=== PATIENT | female | born 1985 | race Caucasian/White ===

== ENCOUNTER 2020-12-16 22:54 | Observation (INO) ==
[2020-12-17 00:54] LABS: POC Creatinine 0.8 mg/dL (0.6-1.2)
[2020-12-17 00:54] LABS: POC INR 1.1 (0.8-1.2)
--- NOTE | 2020-12-17 01:00 | Emergency Department Note ---
HPI General Chief complaint: Neuro Symptoms/Deficit Stated complaint: hurts to breath Time Seen by Provider: 12/16/20 22:56 Source: patient Mode of arrival: ambulatory Limitations: no limitations History of Present Illness HPI Narrative: Narrative: 35-year-old female presents to the emergency department because of new onset numbness. She states that she felt some numbness on the right side of her face in the afternoon on day of presentation. By 2099 she felt numbness on the right lower extremity in the right upper extremity. She had no weakness associated with this. She had some lightheadedness and some nausea. She also felt like her breathing was a little different than normal and she felt almost like she was drowning. This resolved. She rated her discomfort as a 7 on a 0-to-10 scale and states that it was still ongoing upon arrival. She states no prior similar episodes like this. Nothing makes it better or worse. Related Data Home Medications Medication Instructions Recorded Confirmed topiramate 100 mg tablet 100 mg PO QHS 11/23/20 12/07/20 Previous Rx's Medication Instructions Recorded albuterol sulfate 90 mcg/actuation 2 puff INHALATION Q4H PRN #6.7 g 08/02/20 aerosol inhaler estradiol 0.1 mg/24 hr semiweekly 1 patch TOPICAL .COMPLEX #8 each 08/02/20 transdermal patch ondansetron HCl 4 mg tablet 4 mg PO Q6H PRN #30 tab 08/02/20 sumatriptan succinate 50 mg tablet 50 mg PO PRN PRN #14 tab 08/02/20 metformin 500 mg tablet 500 mg PO BID #60 tab 10/27/20 clonazepam 1 mg tablet See Rx Instructions PO BID #45 tab 11/23/20 lamotrigine 200 mg tablet See Rx Instructions .ROUTE 11/23/20 .COMPLEX #30 tab lamotrigine 25 mg tablet 50 mg PO QDAY #60 tab 11/30/20 tizanidine 4 mg tablet 4 mg PO HS #30 tab 12/13/20 Allergies Allergy/AdvReac Type Severity Reaction Status Date / Time cephalexin [From Keflex] Allergy Severe Anaphylaxis Verified 12/16/20 23:00 Nortriptyline Allergy Severe Constipation, Verified 12/16/20 23:00 Tachycardia bee venom protein (honey bee) Allergy Intermediate Rash Verified 12/16/20 23:00 Doxepin Allergy Unknown Mental Verified 12/16/20 23:00 Breakdown gabapentin [From Neurontin] Allergy Unknown unknown Verified 12/16/20 23:00 propranolol Allergy Unknown unknown Verified 12/16/20 23:00 Review of Systems ROS ROS Narrative: Narrative: Constitutional: Denies fever and chills Eyes: Denies eye pain ENT ED: Denies throat pain, congestion and rhinorrhea Cardiovascular: Denies chest pain Respiratory: Denies shortness of breath Gastrointestinal: Reports nausea; Denies diarrhea Genitourinary: Denies dysuria Musculoskeletal: Denies back pain Integumentary: Denies rash Neurological: Reports numbness (Right upper extremity and right lower extremity right side of face.); Denies headache Psychiatric: Reports anxiety and depression Hematological/Lymphatic: Denies easy bleeding PFSH Narrative Patient History Narrative: Narrative: Medical/Surgical/Family History All Active Problems (Updated 12/17/20 @ 07:58 by Dane Bunch MD) Acute costochondritis (Acute) Headache (Acute) Cerebrovascular accident (Acute) Anxiety and depression (Chronic) Left knee sprain (Acute) Left ankle sprain (Acute) Right wrist sprain (Acute) Metabolic syndrome (Chronic) Fatigue (Chronic) Morbid obesity (Chronic) PTSD (post-traumatic stress disorder) (Chronic) Major depressive disorder, recurrent (Acute) Chronic ear infection (Chronic) Bilateral carpal tunnel syndrome (Chronic) Primary fibromyalgia syndrome (Chronic) Chronic low back pain (Chronic) Osteoarthritis (Chronic) Symptomatic dermographism (Chronic) Irritable bowel syndrome (Chronic) Peptic ulcer (Chronic) Migraine (Chronic) Obstructive sleep apnea (Chronic) Insomnia (Acute) Anxiety disorder (Acute) Vitamin D deficiency (Chronic) Migraine (Chronic) Costalchondritis (Chronic) Pleurisy (Chronic) Ovarian cyst (Chronic) Seasonal allergic rhinitis (Chronic) GERD (gastroesophageal reflux disease) (Chronic) Medical History (Updated 12/17/20 @ 07:58 by Dane Bunch MD) Abdominal pain Acute bronchitis Allergic reaction Anxiety and depression Anxiety disorder Anxiety hysteria Backache Bilateral carpal tunnel syndrome Chronic ear infection Chronic low back pain Complicated UTI (urinary tract infection) Contusion Diarrhea Disturbance of consciousness Dysphagia Dyspnea on exertion Elbow contusion Encounter for wound re-check Epigastric abdominal pain Exposure to genital herpes Fatigue Gastritis GERD (gastroesophageal reflux disease) History of recurrent UTI (urinary tract infection) Insomnia Irritable bowel syndrome Low back strain Metabolic syndrome Migraine Morbid obesity Nasal fracture Numbness of hand Obstructive sleep apnea Osteoarthritis Peptic ulcer Primary fibromyalgia syndrome Seasonal allergic rhinitis Sinusitis Sleep apnea Symptomatic dermographism Urinary tract infection Vaginal pain Viral syndrome Vitamin D deficiency Surgical History History of esophagogastroduodenoscopy (EGD) S/P appendectomy S/P cholecystectomy Family History Mother Anxiety Depressive disorder Malignant tumor of ovary Grandmother Anxiety Maternal Depressive disorder Maternal Pick's disease Maternal HTN (hypertension) Paternal Glaucoma Paternal Father Substance abuse Malignant tumor of testis Grandfather Heart disease, congenital Paternal Family/Other Malignant tumor of ovary Aunt Daughter Anxiety ADHD (attention deficit hyperactivity disorder) Social History Smoking Status: Former smoker Alcohol Intake Frequency: holiday/special occasion only Substance Use: does not use Exam Narrative Narrative: Narrative: General Limitations: no limitations General appearance: Present alert and in no apparent distress Head Head: Present atraumatic and normocephalic Eye Eye: Present PERRL and EOMI; Absent scleral icterus ENT ENT: Present normal oropharynx and mucous membranes moist Neck Neck: Present normal inspection and trachea midline Chest Chest: Present normal inspection Respiratory Respiratory: Present normal lung sounds bilaterally Cardiovascular Cardiovascular: Present regular rate and normal rhythm Adbominal Abdominal: Present soft and other (Obese); Absent tenderness Rectal Rectal: Present deferred Extremities Extremities: Present normal inspection and full ROM; Absent pedal edema Back Back: Present normal inspection; Absent tenderness Neurological Neurological: Present alert, oriented X3 and other (Decreased sensation right upper extremity right lower extremity right side of the face.) Psychiatric Psychiatric: Present normal affect and normal mood Skin Skin: Present warm (WNL) and dry Course Consultations Consultation #1: Neurologist who was consulted discussed the CT head that was negative with me. She stated the patient was out of the window for thrombolytics. She stated the patient was still in the window for thrombectomy and requested that I order a CT angiogram of the head and of the neck for [facility]. She advised that the patient would need admission to the hospital regardless of whether those tests were positive or negative. If they were positive the patient would need transport for thrombectomy. Consultation #2: Neurologist reports she looked at CTA head and neck and does not see any acute pathology. Patient is not a candidate for thrombectomy. Neurologist recommends patient be admitted to the hospital for an MR I of the brain tomorrow morning. Time: 01:48 Vital Signs Vital signs: Vital Signs Temperature 97.5 F 12/16/20 22:56 Pulse Rate 81 12/16/20 22:56 Respiratory Rate 16 12/16/20 22:56 Blood Pressure 130/80 12/16/20 22:56 Pulse Oximetry (%) 100 12/16/20 22:56 Temperature 97.5 F 12/17/20 00:41 Pulse Rate 86 12/17/20 03:31 Respiratory Rate 16 12/17/20 00:41 Blood Pressure 119/80 12/17/20 03:31 Pulse Oximetry (%) 98 12/17/20 03:31 MDM MDM Narrative Medical decision making narrative: Narrative: 35-year-old female who presents emerged department complaining of new onset numbness right lower extremity right upper extremity right side of the face. She denies any weakness with this. Differential diagnosis includes TIA, acute CVA, intracranial injury or bleed, neuropathy, spinal cord injury. Code stroke was recognized and instigated. CT of the head came back showing no acute pathology. The patient was in the 4.5-hour window at this point. Blood work was obtained. Neurologist reviewed the case and felt that she was not a candidate for thrombolytics. Neurologist requested we do a CTA of the head and neck. These were performed and both were read as negative by the radiologist as well as the neurologist. The neurologist recommended the patient be admitted to the hospital overnight and have a MRI of the brain performed in the morning. Morning MRI has been ordered. Case has been discussed with the hospitalist. He accepts the patient for admission. I ordered aspirin 324 mg p.o. Lab Data Result diagrams: 12/17/20 00:26 12/17/20 00:25 Labs: Lab Results 12/17/20 12/17/20 12/17/20 Range/Units 00:25 00:25 00:26 WBC 8.6 (4.5-11.0) K/mcL RBC 4.34 (4.00-5.20) M/mcL Hgb 12.4 (12.0-15.0) g/dL Hct 38.6 (36.0-48.0) % MCV 88.9 (80.0-100.0) fL MCH 28.6 (26.0-34.0) pg MCHC 32.1 (31.0-36.0) g/dL RDW 13.2 (11.5-14.5) % Plt Count 330 (140-440) K/mcL MPV 9.2 (7.4-10.4) fL Neut % (Auto) 61.3 (38.0-78.0) % Lymph % (Auto) 31.8 (15.0-49.0) % [place] % (Auto) 5.4 (1.0-12.0) % Eos % (Auto) 1.0 (0.0-7.0) % Baso % (Auto) 0.5 (0.0-2.0) % Lymph # (Auto) 2.75 (1.50-4.80) K/mcL [place] # (Auto) 0.47 (0.10-0.90) K/mcL Eos # (Auto) 0.09 (0.00-0.70) K/mcL Baso # (Auto) 0.04 (0.00-0.20) K/mcL Absolute Neutrophils 5.29 (1.80-8.00) K/mcL POC PT (11.9-14.5) sec PT POC INR (0.8-1.2) INR APTT Sodium 140 (133-145) mmol/L Potassium 3.8 (3.3-5.1) mmol/L Chloride 104 (96-108) mmol/L Carbon Dioxide 26 (22-30) mmol/L Anion Gap 10.0 (8.0-16.0) BUN 8 (6-20) mg/dL Creatinine 0.9 (0.6-1.1) mg/dL POC Creatinine 0.8 (0.6-1.2) mg/dL GFR Calculation 82 Glucose 95 (70-105) mg/dL Calcium 9.1 (8.6-10.4) mg/dL Total Bilirubin 0.2 (0.1-1.0) mg/dL AST 17 (<32) U/L ALT 23 (<40) U/L Alkaline Phosphatase 108 (39-117) U/L Troponin T < 0.01 (<0.03) ng/mL Total Protein 6.8 (5.9-8.4) gm/dL Albumin 4.1 (3.2-5.2) gm/dL Globulin 2.7 (2.2-3.7) gm/dL Albumin/Globulin Ratio 1.5 (1.0-2.3) Urine Color Urine Appearance (Clear) Urine pH (5.0-9.0) Ur Specific [place] (1.000-1.035) Urine Protein (Negative) mg/dL Urine Glucose (UA) (Negative) mg/dL Urine Ketones (Negative) mg/dL Urine Occult Blood (Negative) mg/dL Urine Nitrate (Negative) Urine Bilirubin (Negative) mg/dL Urine Urobilinogen mg/dL Ur Leukocyte Esterase (Negative) /ug Ur Culture Indicated? 12/17/20 12/17/20 Range/Units 00:26 01:15 WBC (4.5-11.0) K/mcL RBC (4.00-5.20) M/mcL Hgb (12.0-15.0) g/dL Hct (36.0-48.0) % MCV (80.0-100.0) fL MCH (26.0-34.0) pg MCHC (31.0-36.0) g/dL RDW (11.5-14.5) % Plt Count (140-440) K/mcL MPV (7.4-10.4) fL Neut % (Auto) (38.0-78.0) % Lymph % (Auto) (15.0-49.0) % [place] % (Auto) (1.0-12.0) % Eos % (Auto) (0.0-7.0) % Baso % (Auto) (0.0-2.0) % Lymph # (Auto) (1.50-4.80) K/mcL [place] # (Auto) (0.10-0.90) K/mcL Eos # (Auto) (0.00-0.70) K/mcL Baso # (Auto) (0.00-0.20) K/mcL Absolute Neutrophils (1.80-8.00) K/mcL POC PT 12.8 (11.9-14.5) sec PT TNP POC INR 1.1 (0.8-1.2) INR TNP APTT TNP Sodium (133-145) mmol/L Potassium (3.3-5.1) mmol/L Chloride (96-108) mmol/L Carbon Dioxide (22-30) mmol/L Anion Gap (8.0-16.0) BUN (6-20) mg/dL Creatinine (0.6-1.1) mg/dL POC Creatinine (0.6-1.2) mg/dL GFR Calculation Glucose (70-105) mg/dL Calcium (8.6-10.4) mg/dL Total Bilirubin (0.1-1.0) mg/dL AST (<32) U/L ALT (<40) U/L Alkaline Phosphatase (39-117) U/L Troponin T (<0.03) ng/mL Total Protein (5.9-8.4) gm/dL Albumin (3.2-5.2) gm/dL Globulin (2.2-3.7) gm/dL Albumin/Globulin Ratio (1.0-2.3) Urine Color Yellow Urine Appearance Hazy A (Clear) Urine pH 6.0 (5.0-9.0) Ur Specific [place] 1.017 (1.000-1.035) Urine Protein Negative (Negative) mg/dL Urine Glucose (UA) Negative (Negative) mg/dL Urine Ketones Negative (Negative) mg/dL Urine Occult Blood Negative (Negative) mg/dL Urine Nitrate Negative (Negative) Urine Bilirubin Negative (Negative) mg/dL Urine Urobilinogen Negative mg/dL Ur Leukocyte Esterase Negative (Negative) /ug Ur Culture Indicated? No Radiology Data Radiology results reviewed: Yes I reviewed the patient's radiology results. Radiology results narrative: CT scan of the head showed no acute ischemic infarct, hemorrhage, or mass-effect. EKG Data EKG #1: EKG attestation: Yes I reviewed and interpreted this EKG. EKG shows normal: sinus rhythm, axis, intervals and QRS complexes Rate: normal Rhythm: NSR [place]/QRS: normal ST segment elevation in: None ST segment depression in: None Discharge Plan Patient/Caregiver Discharge Instructions Pt seen by FIELD PLACEMENT DIRECTOR/PA only: No Clinical Impression: Cerebrovascular accident Activity: as instructed Patient Disposition: Xfer As Inpt ([facility]) Condition: Fair Follow up with: Darrell Arriaga MD [Primary Care Provider] - Prescriptions: No Action lamotrigine 200 mg tablet See Rx Instructions .ROUTE .COMPLEX Qty: 30 RF: 1 clonazepam 1 mg tablet See Rx Instructions PO BID Qty: 45 RF: 3 topiramate 100 mg tablet 100 mg PO QHS RF: 0 lamotrigine 25 mg tablet 50 mg PO QDAY Qty: 60 RF: 2 metformin 500 mg tablet 500 mg PO BID Qty: 60 RF: 2 tizanidine 4 mg tablet 4 mg PO HS Qty: 30 RF: 2 albuterol sulfate 90 mcg/actuation HFA aerosol inhaler 2 puff INHALATION Q4H PRN (Reason: Wheezing) Qty: 6.7 RF: 1 ondansetron HCl 4 mg tablet 4 mg PO Q6H PRN (Reason: nausea and vomiting) Qty: 30 RF: 0 sumatriptan succinate 50 mg tablet 50 mg PO PRN PRN (Reason: migraines) Qty: 14 RF: 0 estradiol 0.1 mg/24 hr patch semiweekly 1 patch topical .COMPLEX Qty: 8 RF: 1
[2020-12-17 01:34] LABS: Basophils # (Auto) 0.04 K/mcL (0.00-0.20); Basophils % (Auto) 0.5 % (0.0-2.0); Eosinophils # (Auto) 0.09 K/mcL (0.00-0.70); Hematocrit 38.6 % (36.0-48.0); Hemoglobin 12.4 g/dL (12.0-15.0); Lymphocytes # (Auto) 2.75 K/mcL (1.50-4.80); Lymphocytes % (Auto) 31.8 % (15.0-49.0); Mean Cell Volume 88.9 fL (80.0-100.0); Mean Corpuscular HGB Conc 32.1 g/dL (31.0-36.0); Mean Platelet Volume 9.2 fL (7.4-10.4); Monocytes # (Auto) 0.47 K/mcL (0.10-0.90); Monocytes % (Auto) 5.4 % (1.0-12.0); Neutrophils % (Auto) 61.3 % (38.0-78.0); Platelet Count 330 K/mcL (140-440); RBC 4.34 M/mcL (4.00-5.20); Red Cell Distribution Width 13.2 % (11.5-14.5); WBC 8.6 K/mcL (4.5-11.0)
[2020-12-17 01:40] LABS: POC Pro Time 12.8 sec (11.9-14.5)
[2020-12-17 01:57] LABS: ALT/SGPT 23 U/L (<40); AST/SGOT 17 U/L (<32); Albumin 4.1 gm/dL (3.2-5.2); Albumin/Globulin Ratio 1.5 (1.0-2.3); Alkaline Phosphatase 108 U/L (39-117); Bilirubin,Total 0.2 mg/dL (0.1-1.0); Blood Urea Nitrogen 8 mg/dL (6-20); Calcium 9.1 mg/dL (8.6-10.4); Carbon Dioxide 26 mmol/L (22-30); Chloride 104 mmol/L (96-108); Globulin 2.7 gm/dL (2.2-3.7); Glomerular Filtration Rate 82; Glucose 95 mg/dL (70-105)
[2020-12-17 03:35] LABS: Appearance,Urine HAZY (Clear); Bilirubin,Urine Negative (Negative); Color,Urine YELLOW; Culture Indicated,Urine No; Glucose,Urine (UA) Negative (Negative); Ketones,Urine Negative (Negative); Leukocyte Esterase,Urine Negative /ug (Negative); Nitrate,Urine Negative (Negative); Protein,Urine Negative (Negative); Specific Gravity,Urine 1.017 (1.000-1.035); Urine Blood Negative (Negative); Urobilinogen,Urine Negative
[2020-12-17 04:39] LABS: INR 0.9 (0.9-1.1); Prothrombin Time 13.1 sec (11.9-14.5)
[2020-12-17] MEDS ORDERED: ASPIRIN 81 MG TAB.CHEW CHEWED ONE (07:17)
[2020-12-17] MEDS ORDERED: POLYETHYLENE GLYCOL 3350 17 GM PACKET PO PRN (07:37)
[2020-12-17] MEDS ORDERED: ONDANSETRON 4 MG/2 ML VIAL IV PRN (07:37)
[2020-12-17] MEDS ORDERED: ACETAMINOPHEN 650 MG/65 ML BAG IV PRN (07:37)
[2020-12-17] MEDS ORDERED: MELATONIN 3 MG TABLET PO PRN (07:37)
[2020-12-17] MEDS ORDERED: METOPROLOL TARTRATE 5 MG/5 ML VIAL IV PRN (07:37)
[2020-12-17] MEDS ORDERED: hydrALAZINE 20 MG/ML VIAL IV PRN (07:37)
[2020-12-17] MEDS ORDERED: POTASSIUM CHLORIDE 40 MEQ in DEXTROSE 5% IN WATER 500 ML IV PRN (07:37)
[2020-12-17] MEDS ORDERED: BISACODYL 10 MG SUPP.RECT PR PRN (07:37)
[2020-12-17] MEDS ORDERED: ACETAMINOPHEN 325 MG TABLET PO PRN (07:37)
[2020-12-17] MEDS ORDERED: MAGNESIUM SULFATE 2 GM/50 ML BAG IV PRN (07:37)
[2020-12-17] MEDS ORDERED: ONDANSETRON 4 MG ODT TABLET SL PRN (07:37)
--- NOTE | 2020-12-17 07:44 | Internal Med History&Physical ---
HPI History of Present Illness Patient information: Note initiated : 12/17/20 at 7:44 am Service Date, if different from initiated Date: [] Patient: Danica Pereyra a 35 y/o F admitted on for hurts to breath. Chief Complaint: Right-sided numbness and tingling History of present illness: Ms. Pereyra is a 35 year old F morbidly obese with a BMI of 41 who presents to the ER with acute onset right-sided lower extremity tingling along with right arm and face numbness that started on 6 in the evening. Symptoms started progress and she presented to the ER within 4 hours. Neurology was consulted, stat neuroimaging was unremarkable for vascular occl usion. Neurology recommended hospitalization and further work-up including MRI/echocardiogram. Subsequently hospital service was consulted. Patient denies prior similar episode. She denies dizziness, Double vision, loss of consciousness, seizure episode but she endorses to prior history of migraines. She denies smoking, alcoholism or major family history of bleeding or clotting disorder or CVA. She is not on OCPs, she denies vertigo, hearing deficit, gait and coordination or swallowing difficulty. Review of systems 10 point review system was performed and is negative except for 1 discussed above PFSH PFSH All Active Problems (Updated 12/17/20 @ 07:58 by Dane Bunch MD) Acute costochondritis (Acute) Headache (Acute) Cerebrovascular accident (Acute) Anxiety and depression (Chronic) Left knee sprain (Acute) Left ankle sprain (Acute) Right wrist sprain (Acute) Metabolic syndrome (Chronic) Fatigue (Chronic) Morbid obesity (Chronic) PTSD (post-traumatic stress disorder) (Chronic) Major depressive disorder, recurrent (Acute) Chronic ear infection (Chronic) Bilateral carpal tunnel syndrome (Chronic) Primary fibromyalgia syndrome (Chronic) Chronic low back pain (Chronic) Osteoarthritis (Chronic) Symptomatic dermographism (Chronic) Irritable bowel syndrome (Chronic) Peptic ulcer (Chronic) Migraine (Chronic) Obstructive sleep apnea (Chronic) Insomnia (Acute) Anxiety disorder (Acute) Vitamin D deficiency (Chronic) Migraine (Chronic) Costalchondritis (Chronic) Pleurisy (Chronic) Ovarian cyst (Chronic) Seasonal allergic rhinitis (Chronic) GERD (gastroesophageal reflux disease) (Chronic) Medical History (Updated 12/17/20 @ 07:58 by Dane Bunch MD) Abdominal pain Acute bronchitis Allergic reaction Anxiety and depression Anxiety disorder Anxiety hysteria Backache Bilateral carpal tunnel syndrome Chronic ear infection Chronic low back pain Complicated UTI (urinary tract infection) Contusion Diarrhea Disturbance of consciousness Dysphagia Dyspnea on exertion Elbow contusion Encounter for wound re-check Epigastric abdominal pain Exposure to genital herpes Fatigue Gastritis GERD (gastroesophageal reflux disease) History of recurrent UTI (urinary tract infection) Insomnia Irritable bowel syndrome Low back strain Metabolic syndrome Migraine Morbid obesity Nasal fracture Numbness of hand Obstructive sleep apnea Osteoarthritis Peptic ulcer Primary fibromyalgia syndrome Seasonal allergic rhinitis Sinusitis Sleep apnea Symptomatic dermographism Urinary tract infection Vaginal pain Viral syndrome Vitamin D deficiency Surgical History History of esophagogastroduodenoscopy (EGD) S/P appendectomy S/P cholecystectomy Family History Mother Anxiety Depressive disorder Malignant tumor of ovary Grandmother Anxiety Maternal Depressive disorder Maternal Pick's disease Maternal HTN (hypertension) Paternal Glaucoma Paternal Father Substance abuse Malignant tumor of testis Grandfather Heart disease, congenital Paternal Family/Other Malignant tumor of ovary Aunt Daughter Anxiety ADHD (attention deficit hyperactivity disorder) Social History lives independently: No occupational status: employed occupation: [employer] sexually active: Yes smoking status: Former smoker quit date: 09/30/07 alcohol intake frequency: holiday/special occasion only substance use type: does not use seatbelt use: always MEDS/ALLERGIES Home Medications and Allergies Home Medications Medication Instructions Recorded Confirmed Type albuterol sulfate 90 mcg/actuation 2 puff INHALATION Q4H PRN #6.7 g 08/02/20 12/07/20 Rx aerosol inhaler estradiol 0.1 mg/24 hr semiweekly 1 patch TOPICAL .COMPLEX #8 each 08/02/20 12/07/20 Rx transdermal patch ondansetron HCl 4 mg tablet 4 mg PO Q6H PRN #30 tab 08/02/20 12/07/20 Rx sumatriptan succinate 50 mg tablet 50 mg PO PRN PRN #14 tab 08/02/20 12/07/20 Rx metformin 500 mg tablet 500 mg PO BID #60 tab 10/27/20 12/07/20 Rx clonazepam 1 mg tablet See Rx Instructions PO BID #45 tab 11/23/20 12/07/20 Rx lamotrigine 200 mg tablet See Rx Instructions .ROUTE 11/23/20 12/07/20 Rx .COMPLEX #30 tab topiramate 100 mg tablet 100 mg PO QHS 11/23/20 12/07/20 History lamotrigine 25 mg tablet 50 mg PO QDAY #60 tab 11/30/20 12/07/20 Rx tizanidine 4 mg tablet 4 mg PO HS #30 tab 12/13/20 Rx Allergies Allergy/AdvReac Type Severity Reaction Status Date / Time cephalexin [From Keflex] Allergy Severe Anaphylaxis Verified 12/16/20 23:00 Nortriptyline Allergy Severe Constipation, Verified 12/16/20 23:00 Tachycardia bee venom protein (honey bee) Allergy Intermediate Rash Verified 12/16/20 23:00 Doxepin Allergy Unknown Mental Verified 12/16/20 23:00 Breakdown gabapentin [From Neurontin] Allergy Unknown unknown Verified 12/16/20 23:00 propranolol Allergy Unknown unknown Verified 12/16/20 23:00 EXAM Constitutional Vitals: Temp Pulse Resp BP Pulse Ox 97.5 F 69 16 123/63 96 12/17/20 00:41 12/17/20 07:20 12/17/20 00:41 12/17/20 07:20 12/17/20 07:20 Morbidly obese, minimally anxious Head normocephalic Oral cavity moist No ear nose discharge Eye movement symmetrical Neck supple no lymphadenopathy S1-S2 regular Nonlabored breathing Nondistended nontender abdomen Lower extremity no cyanosis clubbing or joint swelling Skin no suspicious lesion Psych anxious but alert cooperative Neuro GCS 15 No asymmetric weakness, normal higher function DATA Data Completed and Pending Labs: Labs from last 24 hours 12/17/20 12/17/20 12/17/20 03:37 01:15 00:26 WBC RBC Hgb Hct MCV MCH MCHC RDW Plt Count MPV Neut % (Auto) Lymph % (Auto) [place] % (Auto) Eos % (Auto) Baso % (Auto) Lymph # (Auto) [place] # (Auto) Eos # (Auto) Baso # (Auto) Absolute Neutrophils POC PT 12.8 PT 13.1 TNP POC INR 1.1 INR 0.9 TNP APTT TNP Sodium Potassium Chloride Carbon Dioxide Anion Gap BUN Creatinine POC Creatinine GFR Calculation Glucose Calcium Total Bilirubin AST ALT Alkaline Phosphatase Troponin T Total Protein Albumin Globulin Albumin/Globulin Ratio Urine Color Yellow Urine Appearance Hazy A Urine pH 6.0 Ur Specific [place] 1.017 Urine Protein Negative Urine Glucose (UA) Negative Urine Ketones Negative Urine Occult Blood Negative Urine Nitrate Negative Urine Bilirubin Negative Urine Urobilinogen Negative Ur Leukocyte Esterase Negative Ur Culture Indicated? No 12/17/20 12/17/20 12/17/20 00:26 00:25 00:25 WBC 8.6 RBC 4.34 Hgb 12.4 Hct 38.6 MCV 88.9 MCH 28.6 MCHC 32.1 RDW 13.2 Plt Count 330 MPV 9.2 Neut % (Auto) 61.3 Lymph % (Auto) 31.8 [place] % (Auto) 5.4 Eos % (Auto) 1.0 Baso % (Auto) 0.5 Lymph # (Auto) 2.75 [place] # (Auto) 0.47 Eos # (Auto) 0.09 Baso # (Auto) 0.04 Absolute Neutrophils 5.29 POC PT PT POC INR INR APTT Sodium 140 Potassium 3.8 Chloride 104 Carbon Dioxide 26 Anion Gap 10.0 BUN 8 Creatinine 0.9 POC Creatinine 0.8 GFR Calculation 82 Glucose 95 Calcium 9.1 Total Bilirubin 0.2 AST 17 ALT 23 Alkaline Phosphatase 108 Troponin T < 0.01 Total Protein 6.8 Albumin 4.1 Globulin 2.7 Albumin/Globulin Ratio 1.5 Urine Color Urine Appearance Urine pH Ur Specific [place] Urine Protein Urine Glucose (UA) Urine Ketones Urine Occult Blood Urine Nitrate Urine Bilirubin Urine Urobilinogen Ur Leukocyte Esterase Ur Culture Indicated? A/P Narrative A/P Narrative: * Right-sided paresthesias, Rule out CVA. History of migraine, negative neuroimaging. MRI pending. Echocardiogram ordered. Started on aspirin, statin. Neurology consulted and requested hospitalization for neuroimaging. Continue telemetry monitoring * History of reactive disease continue bronchodilators * Anxiety disorder continue clonazepam * History of migraine continue sumatriptan * DM type II continue sliding-scale insulin/CC diet * Prophylaxis Heparin * Full code Plan * Observation admit * Echocardiogram/MRI brain * Aspirin/statin * Pre-existing medical condition management home meds * Physical therapy * telemetry monitoring Time Spent With Patient Time: Total time spent is greater than 50% in coordination of care (as documented) at patient's floor/unit and/or counseling patient:
[2020-12-17] MEDS ORDERED: ONDANSETRON 4 MG/2 ML VIAL IV ONE (08:04)
--- NOTE | 2020-12-17 09:40 | Cat Scan Report ---
History: New onset stroke symptoms with right upper and right lower extremity numbness and right facial numbness TECHNIQUE: The brain was imaged without contrast at 2.5 mm intervals. The radiation exposure was limited using dose reduction technology. FINDINGS: There is no evidence of an infarct, hemorrhage or mass effect. 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 No hydrocephalus is present. There is no abnormal extra-axial fluid collection. Bone windows show no skull lesion. The visualized sinuses are clear. IMPRESSION: Normal exam Interpreted and Authenticated by: Antwon Briggs 12/17/20
--- NOTE | 2020-12-17 09:48 | Cat Scan Report ---
History: New onset right-sided numbness TECHNIQUE: Following injection of intravenous nonionic contrast, arterial phase images were acquired of the head and neck. Sagittal, coronal and MIPS images were obtained. The radiation exposure was limited using dose reduction technology. FINDINGS: The aortic arch and great vessels arising from the aorta are normal in caliber. There is no plaque formation and no dissection. The proximal and midportion of the right internal carotid tortuous and forms a loop. There is no associated stenosis or kinking. Carotid bifurcations are normal bilaterally. Left internal carotid is normal. Left vertebral artery is dominant. Right vertebral is small but patent. There is no soft tissue mass or adenopathy in the neck. Intracranial arterial circulation is normal. There is no intracranial stenosis, thrombosis or evidence of vasculitis. Anterior and posterior communicating arteries are patent. Basilar artery and posterior circulation are normal. No aneurysm or vascular malformation are present. There is no evidence of an enhancing mass within the brain parenchyma. IMPRESSION: Normal arterial circulation in the head and neck Interpreted and Authenticated by: Antwon Briggs 12/17/20
--- NOTE | 2020-12-17 09:50 | Magnetic Resonance Report ---
History: New stroke symptoms with right-sided weakness and numbness TECHNIQUE: Stroke protocol was performed using multiple pulse sequences. FINDINGS: There is no intracranial hemorrhage, infarct, edema or mass effect. There is a cavum septum pellucidum which is an anatomic variant. The ventricles are otherwise normal. There are are no degenerative changes or evidence of inflammation. IMPRESSION: Normal exam Dr. Bunch was called with report Interpreted and Authenticated by: Antwon Briggs 12/17/20
[2020-12-17] MEDS: MULTIVIT,THER IRON,CA,FA & MIN 1 TABLET PO SCH (09:58)
[2020-12-17] MEDS: HEPARIN 5,000 UNIT/ML VIAL SQ SCH ×2 (09:58→21:15)
[2020-12-17] MEDS: ASPIRIN 81 MG TAB.CHEW CHEWED SCH (09:58)
[2020-12-17] MEDS: DOCUSATE SODIUM 100 MG CAPSULE PO SCH ×2 (09:58→21:14)
[2020-12-17] MEDS: 0.9 % SODIUM CHLORIDE 10 ML SYRINGE IV SCH ×2 (14:18→20:00)
[2020-12-17] MEDS ORDERED: DEXTROSE 31 GM ORAL.SUSP PO PRN (18:48)
[2020-12-17] MEDS ORDERED: DEXTROSE 50% 50 ML VIAL IV PRN (18:48)
[2020-12-17] MEDS ORDERED: sitaGLIPtin 100 MG TABLET PO ONE (18:48)
[2020-12-17] MEDS ORDERED: ATORVASTATIN 20 MG TABLET PO SCH (21:00)
[2020-12-17] MEDS ORDERED: SENNOSIDES/DOCUSATE SODIUM 1 TAB TABLET PO SCH (21:00)
[2020-12-17] MEDS: INSULIN LISPRO 1 UNIT/0.01 ML UNIT SQ SCH (21:25)
[2020-12-18] MEDS: 0.9 % SODIUM CHLORIDE 10 ML SYRINGE IV SCH (05:06)
[2020-12-18 07:11] LABS: Basophils # (Auto) 0.04 K/mcL (0.00-0.20); Basophils % (Auto) 0.6 % (0.0-2.0); Eosinophils # (Auto) 0.11 K/mcL (0.00-0.70); Eosinophils % (Auto) 1.6 % (0.0-7.0); Hematocrit 38.4 % (36.0-48.0); Hemoglobin 12.3 g/dL (12.0-15.0); Lymphocytes % (Auto) 29.5 % (15.0-49.0); Mean Cell Volume 89.7 fL (80.0-100.0); Mean Platelet Volume 9.1 fL (7.4-10.4); Monocytes % (Auto) 5.9 % (1.0-12.0); Neutrophils % (Auto) 62.4 % (38.0-78.0); Platelet Count 326 K/mcL (140-440); RBC 4.28 M/mcL (4.00-5.20); Red Cell Distribution Width 13.8 % (11.5-14.5); WBC 6.8 K/mcL (4.5-11.0)
[2020-12-18] MEDS: INSULIN LISPRO 1 UNIT/0.01 ML UNIT SQ SCH ×2 (07:31→11:34)
[2020-12-18 07:43] LABS: ALT/SGPT 22 U/L (<40); AST/SGOT 16 U/L (<32); Albumin 3.8 gm/dL (3.2-5.2); Albumin/Globulin Ratio 1.4 (1.0-2.3); Alkaline Phosphatase 104 U/L (39-117); Bilirubin,Direct < 0.2 mg/dL (0-0.3); Bilirubin,Total 0.2 mg/dL (0.1-1.0); Blood Urea Nitrogen 13 mg/dL (6-20); Calcium 8.7 mg/dL (8.6-10.4); Carbon Dioxide 23 mmol/L (22-30); Chloride 110 mmol/L (96-108); Globulin 2.7 gm/dL (2.2-3.7); Glomerular Filtration Rate 95; Glucose 97 mg/dL (70-105); Lactate Dehydrogenase 172 U/L (135-225); Triglycerides 163 mg/dL (<150); Uric Acid 6.5 mg/dL (2.5-8.0)
[2020-12-18] MEDS: DOCUSATE SODIUM 100 MG CAPSULE PO SCH (08:14)
[2020-12-18] MEDS: HEPARIN 5,000 UNIT/ML VIAL SQ SCH (08:14)
[2020-12-18] MEDS: ASPIRIN 81 MG TAB.CHEW CHEWED SCH (08:15)
[2020-12-18] MEDS: MULTIVIT,THER IRON,CA,FA & MIN 1 TABLET PO SCH (08:15)
[2020-12-18] MEDS ORDERED: sitaGLIPtin 100 MG TABLET PO SCH (09:00)
--- NOTE | 2020-12-18 10:43 | Discharge Summary ---
Discharge Provider Provider Patient information: Note initiated : 12/18/20 at 10:40 am Service Date, if different from initiated Date: [] Patient: Danica Pereyra a 35 y/o F admitted on 12/17/20 for hurts to breath. Discharge diagnosis * Right-sided paresthesias, History of migraine, negative neuroimaging including MRI brain. Echocardiogram results awaited. Continue aspirin, statin. Neurology consulted and requested hospitalization for neuroimaging. No overnight telemetry monitoring. Discharging advised to follow-up with PCP. * History of reactive disease stable on bronchodilators * Anxiety disorder managed on clonazepam * History of migraine remained stable on home dose sumatriptan * DM type II managed on sliding-scale insulin/CC diet Brief hospital course Ms. Pereyra is a 35 year old F morbidly obese with a BMI of 41 who presents to the ER with acute onset right-sided lower extremity tingling along with right arm and face numbness that started on 6 in the evening. Symptoms started progress and she presented to the ER within 4 hours. Neurology was consulted, stat neuroimaging was unremarkable for vascular occlusion. Neurology recommended hospitalization and further work-up including MRI/echocardiogram. Subsequently hospital service was consulted. Patient denies prior similar episode. She denies dizziness, Double vision, loss of consciousness, seizure episode but she endorses to prior history of migrai hay. She denies smoking, alcoholism or major family history of bleeding or clotting disorder or CVA. She is not on OCPs, she denies vertigo, hearing deficit, gait and coordination or swallowing difficulty. 12/18-MRI negative for acute CVA, on aspirin/statin. Recommend outpatient follow-up with primary care physician. Symptoms clinically improved. No overnight telemetry events. Return to ER if worsening neurological symptoms noted. Date of admission: 12/17/20 08:48 Primary care physician: Darrell Arriaga MD Consults: 12/17/20 Consult to Physician [CONS] Stat Comment: Consulting Provider: Nik Walter Reason For Exam: Physician to Consult Discharge Meds Discharge Medications Home Medications albuterol sulfate 90 mcg/actuation aerosol inhaler 2 puff INHALATION Q4H PRN #6.7 g 08/02/20 [Rx Confirmed 12/17/20 Last Taken 12/10/20] estradiol 0.1 mg/24 hr semiweekly transdermal patch 1 patch TOPICAL .COMPLEX #8 each 08/02/20 [Rx Confirmed 12/17/20 Last Taken 12/17/20] ondansetron HCl 4 mg tablet 4 mg PO Q6H PRN #30 tab 08/02/20 [Rx Confirmed 12/17/20 Last Taken 12/16/20 21:00] sumatriptan succinate 50 mg tablet 50 mg PO PRN PRN #14 tab 08/02/20 [Rx Confirmed 12/17/20 Last Taken 12/09/20 09:00] metformin 500 mg tablet 500 mg PO BID #60 tab 10/27/20 [Rx Confirmed 12/17/20 Last Taken 12/16/20 21:00] clonazepam 1 mg tablet See Rx Instructions PO BID #45 tab 11/23/20 [Rx Confirmed 12/17/20 Last Taken 12/16/20 09:00] lamotrigine 200 mg tablet See Rx Instructions .ROUTE .COMPLEX #30 tab 11/23/20 [Rx Confirmed 12/17/20 Last Taken 12/16/20 21:00] topiramate 100 mg tablet 100 mg PO QHS 11/23/20 [History Confirmed 12/17/20 Last Taken 12/15/20 21:00] lamotrigine 25 mg tablet 50 mg PO QDAY #60 tab 11/30/20 [Rx Confirmed 12/17/20 Last Taken 12/16/20 09:00] tizanidine 4 mg tablet 4 mg PO HS #30 tab 12/13/20 [Rx Confirmed 12/17/20 Last Taken 12/15/20 21:00] aspirin 324 mg CHEWED DAILY #30 tab 12/18/20 [Rx Last Taken Unknown] atorvastatin 40 mg PO HS #30 tab 12/18/20 [Rx Last Taken Unknown] COURSE Time Spent with Patient Time attestation: Total time spent providing and/or coordinating discharge services: EXAM Constitutional Vitals: Temp Pulse Resp BP Pulse Ox 97.7 F 74 19 134/91 98 12/18/20 08:01 12/18/20 08:14 12/18/20 08:14 12/18/20 08:01 12/18/20 08:14 Discharge Data Data Completed and Pending Labs on day of discharge: Labs from last 24 hours 12/18/20 12/18/20 05:04 05:04 WBC 6.8 RBC 4.28 Hgb 12.3 Hct 38.4 MCV 89.7 MCH 28.7 MCHC 32.0 RDW 13.8 Plt Count 326 MPV 9.1 Neut % (Auto) 62.4 Lymph % (Auto) 29.5 [place] % (Auto) 5.9 Eos % (Auto) 1.6 Baso % (Auto) 0.6 Lymph # (Auto) 2.00 [place] # (Auto) 0.40 Eos # (Auto) 0.11 Baso # (Auto) 0.04 Absolute Neutrophils 4.24 Sodium 144 Potassium 3.7 Chloride 110 H Carbon Dioxide 23 Anion Gap 11.0 BUN 13 Creatinine 0.8 GFR Calculation 95 Glucose 97 Uric Acid 6.5 Calcium 8.7 Phosphorus 3.0 Magnesium 2.3 Total Bilirubin 0.2 Direct Bilirubin < 0.2 GGT 49 H AST 16 ALT 22 Alkaline Phosphatase 104 Lactate Dehydrogenase 172 Total Protein 6.5 Albumin 3.8 Globulin 2.7 Albumin/Globulin Ratio 1.4 Triglycerides 163 H Discharge Plan Patient/Caregiver Discharge Instructions Activity: increase activity as tolerated and as instructed Activity Restrictions/Additional Instructions: Follow-up with PCP within 7 days Continue aspirin statin\ Return to ER worsening neurological symptoms including unilateral weakness, double vision, difficulty swallowing and speaking Prescriptions: New atorvastatin 20 mg Tablet 40 mg PO HS Qty: 30 RF: 0 aspirin 81 mg Tablet,Chewable 324 mg CHEWED DAILY Qty: 30 RF: 0 Continued lamotrigine 200 mg tablet See Rx Instructions .ROUTE .COMPLEX Qty: 30 RF: 1 clonazepam 1 mg tablet See Rx Instructions PO BID Qty: 45 RF: 3 topiramate 100 mg tablet 100 mg PO QHS RF: 0 lamotrigine 25 mg tablet 50 mg PO QDAY Qty: 60 RF: 2 metformin 500 mg tablet 500 mg PO BID Qty: 60 RF: 2 tizanidine 4 mg tablet 4 mg PO HS Qty: 30 RF: 2 albuterol sulfate 90 mcg/actuation HFA aerosol inhaler 2 puff INHALATION Q4H PRN (Reason: Wheezing) Qty: 6.7 RF: 1 ondansetron HCl 4 mg tablet 4 mg PO Q6H PRN (Reason: nausea and vomiting) Qty: 30 RF: 0 sumatriptan succinate 50 mg tablet 50 mg PO PRN PRN (Reason: migraines) Qty: 14 RF: 0 estradiol 0.1 mg/24 hr patch semiweekly 1 patch topical .COMPLEX Qty: 8 RF: 1 Follow Up Plan Follow up with: Darrell Arriaga MD [Primary Care Provider] - Patient Disposition: Home, Self-Care Prognosis: Fair Rehab Potential: Fair I certify that the patient requires SNF services: No Overall status at discharge: patient is progressing back to baseline Discharge Orders: Discharge Order (Routine); Ordered 12/18/20 Ordered By: Nik REA VTE Deep Vein Thrombosis/Pulmonary Embolism Present on Admission: No
== END 2020-12-18 12:59 | disposition home or self-care (01) ==
LOC: ICU 22:54 → ED 22:54 → ICU 12-17 08:51
PROVIDERS: ADMIT Internal Medicine; ATTEND Internal Medicine